=== PATIENT | female | born 1990 ===

== ENCOUNTER 2017-05-03 23:13 | Emergency (ER) | payer MEDICAID ==
[2017-05-04 00:01] VITALS: BP 122/91; PULSE 120; RESP 20; TEMP 98.1; O2SAT 100
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
== END 2017-05-04 01:46 | disposition home or self-care (01) ==
LOC: EDBD → MERGE 23:13 → ED 23:13
DX: S00.83XA Contusion of other part of head, initial encounter (principal); S60.222A Contusion of left hand, initial encounter; S60.221A Contusion of right hand, initial encounter; Y04.2XXA Assault by strike against or bumped into by another person, initial encounter; Y93.89 Activity, other specified; Y92.89 Other specified places as the place of occurrence of the external cause